=== PATIENT | female | born 1970 | race Caucasian/White ===

== ENCOUNTER 2019-05-25 15:42 | Emergency (ER) | payer MEDICAID ==
[~2019-05-25] VITALS: Ht 162.6 cm; Wt 68.2 kg
--- NOTE | 2019-05-25 15:54 | NUR ---
PT BIB [place] FROM [facility] WHERE SHE WORKS AND WAS FOUND IN SVT. PT HAS HX OF SVT- LAST HAPPENED 6 MONTHS AGO. PT HAS BEEN COMPLIANT WITH METOPROLOL DOSE. PT RESTING ON GURNEY. CONNECTED TO MONITOR. RECEIVED 6MG ADENOSINE ON THE WAY OVER AND IS NOW IN SINUS RHYTHM. MD AT BEDSIDE ASSESSING PT NOW. NADN. TRISTAN.
[2019-05-25] MEDS ORDERED: SODIUM CHLORIDE FLUSH 10ML SYR IVF ONE (16:00)
[2019-05-25] MEDS ORDERED: METO25TA35 PO (16:11)
--- NOTE | 2019-05-25 16:18 | NUR ---
LAB AT BEDSIDE.
[2019-05-25 16:28] LABS: BASOPHILS # (AUTO) 0.06 x10^3/uL (0-0.1); BASOPHILS % (AUTO) 1 % (0-1); EOSINOPHILS # (AUTO) 0.07 x10^3/uL (0-0.4); EOSINOPHILS % (AUTO) 1 % (1-7); LYMPHOCYTES # (AUTO) 2.67 x10^3/uL (1-3.4); LYMPHOCYTES % (AUTO) 28 % (22-44); MD NO; MEAN CORPUSCULAR HEMOGLOBIN 30.3 pg (27.0-34.8); MEAN CORPUSCULAR HGB CONC 33.3 g/dL (32.4-35.8); MEAN CORPUSCULAR VOLUME 91.1 fL (80-100); MEAN PLATELET VOLUME 7.7 fL (7.4-10.4); MONOCYTES # (AUTO) 0.56 x10^3/uL (0.2-0.8); MONOCYTES % (AUTO) 6 % (2-9); NEUTROPHILS # (AUTO) 6.24 x10^3/uL (1.8-6.8); NEUTROPHILS % (AUTO) 65 % (42-75); PLATELET COUNT 342 x10^3/uL (130-400); RED BLOOD COUNT 4.56 x10^6/uL (3.82-5.3); RED CELL DISTRIBUTION WIDTH 13.1 % (9.6-15.2)
--- NOTE | 2019-05-25 16:28 | NUR ---
PT AMBULATORY WITH STEADY GAIT TO BATHROOM.
--- NOTE | 2019-05-25 16:33 | NUR ---
PT AMBULATORY WITH STEADY GAIT FROM BATHROOM BACK TO [place]. NOW RESTING ON [place]. CONNECTED TO MONITOR. VSSamuel. CHERRY. DENIES NEEDS.
[2019-05-25 16:37] LABS: ALANINE AMINOTRANSFERASE 53 U/L (12-78); ALBUMIN 3.4 g/dL (3.4-5.0); ANION GAP 5 mmol/L (5-15); CALCIUM 8.4 mg/dL (8.5-10.1); CHLORIDE 113 mmol/L (98-107)
[2019-05-25 16:40] LABS: ALKALINE PHOSPHATASE 108 U/L (45-117); BILIRUBIN,TOTAL 0.2 mg/dL (0.2-1.0); TOTAL PROTEIN 6.6 g/dL (6.4-8.2)
[2019-05-25 16:55] VITALS: BP 104/69
--- NOTE | 2019-05-25 16:56 | NUR ---
PT RESTING ON GABY. CHERRY. VSS. DENIES NEEDS. UP FOR RECHECK.
== END 2019-05-25 17:18 | disposition home or self-care (01) ==
LOC: ED 17:12
DX: I47.1 Supraventricular tachycardia (principal)
CPT/HCPCS: 36415; 71045; 80053; 85025; 93005; 99284